=== PATIENT | male | born 1960 | race Caucasian/White ===

== ENCOUNTER 2016-07-04 15:22 | Observation (INO) | payer BC ==
[2016-07-04] MEDS ORDERED: methylPREDNISolone Sodium Succinate 125 MG/2 ML SDV IM ONE (15:45)
[2016-07-04] MEDS ORDERED: Albuterol/Ipratropium 3.0-0.5 MG/3 ML Neb Soln NEB ONE (15:45)
[2016-07-04] MEDS ORDERED: Albuterol/Ipratropium 3.0-0.5 MG/3 ML Neb Soln ONE (15:46)
[2016-07-04] MEDS ORDERED: diphenhydrAMINE 50 MG/ML SDV IM ONE (15:46)
--- NOTE | 2016-07-04 15:53 | EDM.PDOC ---
ED HISTORY OF PRESENT ILLNESS - General Chief Complaint: Respiratory Problem Stated Complaint: COUGH Time Seen by Provider: 07/04/16 15:22 Source: Reports: Patient History Limitations: Reports: No limitations - History of Present Illness INITIAL COMMENTS - FREE TEXT/NARRATIVE: ate shrimp last night; no know allergy has swelling of tongue and throat. persistent cough and wheezing Timing/Duration: Reports: Hour(s): Severity: moderate Location, General: Reports: head, face, neck, other (tongue and throat feel swollen) Quality: Reports: Other (tightness) Improves with: Reports: None Worsens with: Reports: None - Related Data Allergies/ADRs: Allergies Allergy/AdvReac Type Severity Reaction Status Date / Time No Known Allergies Allergy Verified 07/04/16 15:29 Home Meds: Home Meds Bisacodyl [Dulcolax] 10 mg RC DAILY PRN 07/04/16 [History] EPINEPHrine [Epipen 2-Reggie] 0.3 mg IJ ONETIME #2 ml 07/04/16 [Rx] ED ROS GENERAL - Review of Systems Review Of Systems: See Below Constitutional: Reports: other (constant cough and wheezing, face is red, tongue is swollen and throat is swollen) HEENT: Reports: Throat pain Respiratory: Reports: cough Cardiovascular: Reports: No symptoms GI/Abdominal: Reports: No symptoms : Reports: no symptoms Musculoskeletal: Reports: no symptoms Skin: Reports: no symptoms Neurological: Reports: no symptoms Psychiatric: Reports: No symptoms ED EXAM, GENERAL - Physical Exam Exam: See Below Exam Limited By: No limitations General Appearance: alert, anxious Throat/Mouth: Inflammation, Other (swelling to both tongue and throat) Neck: supple, non-tender, full range of motion. No: normal inspection Respiratory/Chest: wheezing Cardiovascular: regular rate, rhythm GI/Abdominal: normal bowel sounds, soft, non tender Back Exam: full range of motion Extremities: normal inspection, normal range of motion Course - Vital Signs Last Recorded V/S: Last Vital Signs Temp 99.0 F 07/04/16 15:33 Pulse 93 07/04/16 15:33 Resp 20 07/04/16 15:33 BP 136/83 07/04/16 15:33 Pulse Ox 96 07/04/16 15:33 - Orders/Labs/Meds Meds: Medications Discontinued Medications Generic Name Dose Route Start Last Admin Trade Name Freq PRN Reason Stop Dose Admin Albuterol/Ipratropium Confirm 07/04/16 15:46 Duoneb 3.0-0.5 Mg/3 Ml Administered 07/04/16 15:47 Dose 3 ml .ROUTE .STK-MED ONE Diphenhydramine HCl 50 mg 07/04/16 15:46 Benadryl IM 07/04/16 15:47 ONETIME ONE Methylprednisolone Sodium Succinate 125 mg 07/04/16 15:45 Solu-Medrol IM 07/04/16 15:46 ONETIME ONE - Re-Assessments/Exams Free Text/Narrative Re-Assessment/Exam: 07/04/16 15:50 given duo neb and benadryl 50/solumedrol 125 IM Departure - Departure Time of Disposition: 16:45 Disposition: Home, Self-Care 01 Condition: good Clinical Impression: Allergic reaction Prescriptions: EPINEPHrine [Epipen 2-Reggie] 0.3 mg IJ ONETIME #2 ml Forms: ED Department Discharge Additional Instructions: follow up with primary go to er with worsening of symptoms - Problem List & Annotations (1) Allergic reaction SNOMED Code(s): 417883352 Code(s): T78.40XA - ALLERGY, UNSPECIFIED, INITIAL ENCOUNTER Status: Acute Current Visit: Yes Qualifiers: Encounter type: initial encounter Qualified Code(s): T78.40XA - Allergy, unspecified, initial encounter - Problem List Review Problem List Initiated/Reviewed/Updated: Yes
[2016-07-04] MEDS ORDERED: Albuterol 0.083% 2.5 MG/3 ML Neb Soln ONE (16:35)
[2016-07-04] MEDS ORDERED: Albuterol 0.083% 2.5 MG/3 ML Neb Soln NEB ONE (16:35)
[2016-07-04] MEDS: Morphine 2 MG/ML Syringe IVPUSH ONE ×2 (17:12→19:05)
[2016-07-04] MEDS ORDERED: Morphine 2 MG/ML Syringe ONE (17:14)
[2016-07-04] MEDS ORDERED: predniSONE 10 MG Tab ONE (17:15)
[2016-07-04] MEDS ORDERED: EPINEPHrine 1:1000 1 MG/ML SDV IM ONE ×2 (17:18→17:25)
[2016-07-04] MEDS ORDERED: Sodium Chloride 0.9% 10 ML Syringe FLUSH PRN (17:27)
[2016-07-04] MEDS ORDERED: Sodium Chloride 0.9% 1,000 ML IV SCH ×2 (17:30)
[2016-07-04] MEDS: methylPREDNISolone Sodium Succinate 125 MG/2 ML SDV IVPUSH SCH (19:20)
--- NOTE | 2016-07-04 20:42 | PCM.SN ---
- Free Text/Narrative Note: Patient examined and evaluated. Patient has some residual throat fullness and complaints of minimal difficulty breathing. No observable inflammation of the throat. X-ray done and no thumb sign. Labs ordered showed mild leukocytosis. Started on Rocephin empirically. Counseled on risks and benefits as well as side effects and patient agrees with plan.
[2016-07-04] MEDS ORDERED: Morphine 2 MG/ML Syringe IVPUSH ONE (20:43)
[2016-07-04] MEDS ORDERED: diphenhydrAMINE 50 MG/ML SDV IVPUSH ONE (20:43)
[2016-07-04] MEDS ORDERED: cefTRIAXone 1 GM in Sodium Chloride 0.9% 50 ML IV SCH (21:00)
[2016-07-04] MEDS: Potassium Chloride 10% 20 MEQ/15 ML Soln 15 ML UD Cup PO SCH (21:58)
[2016-07-05 04:27] VITALS: BP 137/87
[2016-07-05] MEDS: Potassium Chloride 10% 20 MEQ/15 ML Soln 15 ML UD Cup PO SCH (08:20)
--- NOTE | 2016-07-05 09:03 | CR ---
Date of Service: 07/04/16 Clinical Data: Dysphagia. SOFT TISSUE LATERAL NECK AP and lateral views were performed. The epiglottis appears normal. The airway appears unremarkable. The soft tissues are unremarkable. There is degenerative disc disease at multiple levels in the cervical spine. [id number] [facility]
--- NOTE | 2016-07-05 09:06 | CR ---
Date of Service: 07/04/16 Clinical Data: Cough. PA AND LATERAL CHEST No priors. The heart size is normal. There are mild atelectatic changes in the right lung base. The lungs are otherwise clear. No pneumothorax. No pleural effusions. No areas of consolidation. [id number] [facility]
[2016-07-05] MEDS: methylPREDNISolone Sodium Succinate 125 MG/2 ML SDV IVPUSH SCH (09:07)
--- NOTE | 2016-07-05 09:48 | PCM.DCSUM1 ---
Discharge Summary - Discharge Data Discharge Date: 07/05/16 Discharge Disposition: Home, Self-Care 01 Condition: Good - Patient Instructions Activity: As Tolerated Driving: May Drive Today - Discharge Plan Prescriptions/Med Rec: EPINEPHrine [Epipen 2-Reggie] 0.3 mg IJ ONETIME #2 ml Home Medications: Home Meds Bisacodyl [Dulcolax] 10 mg RC DAILY PRN 07/04/16 [History] EPINEPHrine [Epipen 2-Reggie] 0.3 mg IJ ONETIME #2 ml 07/04/16 [Rx] Patient Handouts: Seafood Allergy, Allergies, [id number], Epinephrine injection (Auto-injector), Prednisone tablets Forms: ED Department Discharge Referrals: PCP,None [Primary Care Provider] - - Discharge Summary/Plan Comment DC Time >30 min.: No Discharge Summary/Plan Comment: Counseled on close monitoring and to return to ER or clinic if symptoms develop. Discussed use of epi-pen and to carry with him at all times. Discussed diet and choosing a consistent diet for the next few months and introducing certain foods once a week especially introducing fish or shrimp/other seafood with very minimal trials and waiting for 24 hours to test for anaphylaxis. Discussed routine f/u with his PCP and rtc as needed. Discussed prednisone burst and f/u. - Patient Data Vitals - Most Recent: Last Vital Signs Temp 36.6 C 07/05/16 04:00 Pulse 88 07/05/16 04:00 Resp 16 07/05/16 04:00 BP 137/87 07/05/16 04:00 Pulse Ox 93 L 07/05/16 04:00 I&O - Last 24 hours: Intake & Output 07/04/16 07/05/16 07/05/16 22:59 06:59 14:59 Intake Total 360 Output Total 1775 Balance -1415 Lab Results - Last 24 hrs: Laboratory Results - last 24 hr 07/04/16 07/04/16 Range/Units 19:52 20:05 WBC 12.6 H (4.0-11.0) K/uL RBC 4.92 (4.50-6.50) M/uL Hgb 16.1 (13.0-18.0) g/dL Hct 46.5 (40.0-54.0) % MCV 95 (76-96) fL MCH 32.7 H (27.0-32.0) pg MCHC 34.6 (31.0-35.0) g/dL RDW 12.8 (11.0-16.0) % Plt Count 240 (150-400) K/uL MPV 11.3 H (6.0-10.0) fL Neut % (Auto) 85.9 H (45.0-70.0) % Lymph % (Auto) 10.8 L (20.0-40.0) % Preston % (Auto) 2.9 L (3.0-10.0) % Eos % (Auto) 0.1 L (1.0-5.0) % Baso % (Auto) 0.3 (0.0-0.5) % Neut # 10.82 H (2.00-7.50) K/uL Lymph # 1.36 L (1.50-4.00) K/uL Preston # 0.37 (0.20-0.80) K/uL Eos # 0.01 L (0.04-0.40) K/uL Baso # 0.04 (0.02-0.10) K/uL Sodium 141 (136-145) mmol/L Potassium 2.9 L* (3.5-5.1) mmol/L Chloride 102 (98-107) mmol/L Carbon Dioxide 20.8 L (21.0-32.0) mmol/L Anion Gap 21.1 H (5.0-15.0) mmol/L BUN 11 (8-26) mg/dL Creatinine 1.32 H (0.70-1.30) mg/dL Est Cr Clr Drug Dosing TNP Estimated GFR (MDRD) 56 L (>60) MLS/MIN BUN/Creatinine Ratio 8.3 (6-25) Glucose 177 H (74-100) mg/dL Calcium 8.3 L (8.5-10.1) mg/dL Total Bilirubin 0.6 (0.0-1.0) mg/dL AST 49 H (15-37) U/L ALT 92 H (12-78) U/L Alkaline Phosphatase 102 (46-116) U/L Total Protein 7.4 (6.4-8.2) g/dL Albumin 3.8 (3.4-5.0) g/dL Globulin 3.6 (2.2-4.2) g/dL Albumin/Globulin Ratio 1.1 (0.8-2.0) TSH, Ultra Sensitive 1.046 (0.358-3.740) uIU/mL Med Orders - Current: Current Medications Discontinued Medications Albuterol (Proventil Neb Soln) Confirm Administered Dose 2.5 mg .ROUTE .STK-MED ONE Stop: 07/04/16 16:36 Last Admin: 07/04/16 16:38 Dose: Not Given Albuterol (Proventil Neb Soln) 2.5 mg NEB ONETIME ONE Stop: 07/04/16 16:36 Last Admin: 07/04/16 16:35 Dose: 2.5 mg Albuterol/Ipratropium (Duoneb 3.0-0.5 Mg/3 Ml) Confirm Administered Dose 3 ml .ROUTE .STK-MED ONE Stop: 07/04/16 15:47 Last Admin: 07/04/16 15:55 Dose: Not Given Albuterol/Ipratropium (Duoneb 3.0-0.5 Mg/3 Ml) 3 ml NEB ONETIME ONE Stop: 07/04/16 15:46 Last Admin: 07/04/16 15:46 Dose: 3 ml Diphenhydramine HCl (Benadryl) 50 mg IM ONETIME ONE Stop: 07/04/16 15:47 Last Admin: 07/04/16 15:53 Dose: 50 mg Diphenhydramine HCl (Benadryl) 50 mg IVPUSH ONETIME ONE Stop: 07/04/16 20:44 Last Admin: 07/04/16 22:03 Dose: 50 mg Epinephrine HCl (Adrenalin 1:1000) 0.5 mg IM ONETIME ONE Stop: 07/04/16 17:19 Last Admin: 07/04/16 19:23 Dose: 0.5 mg Epinephrine HCl (Adrenalin 1:1000) 0.3 mg IM ONETIME ONE Stop: 07/04/16 17:26 Last Admin: 07/04/16 21:25 Dose: Not Given Sodium Chloride (Normal Saline) 1,000 mls @ 999 mls/hr IV ASDIRECTED SARAHY Last Admin: 07/04/16 17:01 Dose: 999 mls/hr Sodium Chloride (Normal Saline) 1,000 mls @ 75 mls/hr IV ASDIRECTED [facility] Last Admin: 07/04/16 18:00 Dose: 75 mls/hr Ceftriaxone Sodium 1 gm/ (Sodium Chloride) 50 mls @ 100 mls/hr IV Q24H [facility] Last Admin: 07/04/16 21:55 Dose: 100 mls/hr Methylprednisolone Sodium Succinate (Solu-Medrol) 125 mg IM ONETIME ONE Stop: 07/04/16 15:46 Last Admin: 07/04/16 15:54 Dose: 125 mg Methylprednisolone Sodium Succinate (Solu-Medrol) 125 mg IVPUSH Q6H [facility] Last Admin: 07/05/16 09:07 Dose: Not Given Morphine Sulfate (Morphine) Confirm Administered Dose 2 mg .ROUTE .STK-MED ONE Stop: 07/04/16 17:15 Last Admin: 07/04/16 18:06 Dose: Not Given Morphine Sulfate (Morphine) 2 mg IVPUSH ONETIME ONE Stop: 07/04/16 17:20 Last Admin: 07/04/16 19:05 Dose: 2 mg Morphine Sulfate (Morphine) 2 mg IVPUSH ONETIME ONE Stop: 07/04/16 20:44 Last Admin: 07/04/16 21:26 Dose: Not Given Potassium Chloride (Potassium Chloride Solution) 20 meq PO BID SARAHY Last Admin: 07/05/16 08:20 Dose: 20 meq Ranitidine HCl (Zantac) 300 mg PO STAT STA Stop: 07/04/16 16:27 Last Admin: 07/04/16 16:36 Dose: 300 mg Sodium Chloride (Saline Flush) 10 ml FLUSH ASDIRECTED PRN PRN Reason: Keep Vein Open Last Admin: 07/04/16 22:00 Dose: 10 ml *Q Meaningful Use (DIS) - VTE *Q VTE Criteria *Q: - Stroke *Q Stroke Criteria *Q: - AMI *Q AMI Criteria *Q:
== END 2016-07-05 09:10 | disposition home or self-care (01) ==
LOC: LB.ED 15:22 → LB.MS 17:23
PROVIDERS: ADMIT Nurse Practitioner Family; ATTEND Family Medicine
DX: T78.40XA Allergy, unspecified, initial encounter (principal); Z79.899 Other long term (current) drug therapy
CPT/HCPCS: 36415; 70360; 71020; 80053; 84443; 85025; 87040; 96365; 96372; 96374; 96375; 96376; 99284; A9270; G0378; J0171; J0696; J1200; J2270; J2930; J7040; J7050; J7620